=== PATIENT | male | born 1950 | race African-American/Black ===

== ENCOUNTER 2019-11-20 13:49 | Emergency (ER) | payer OTHER ==
[~2019-11-20] VITALS: Ht 182.9 cm; Wt 77.0 kg
[2019-11-20] MEDS ORDERED: SODIUM CHLORIDE 0.9% 1000ML BAG (SEPSIS BOLUS) IV ONE (15:30)
[2019-11-20 16:05] LABS: BASOPHILS % 0.2 % (0.0-2.0); LYMPHOCYTES % 10.7 % (20.0-50.0); MEAN CORPUSCULAR HEMOGLOBIN 34.2 pg (28.0-32.0); MEAN PLATELET VOLUME 9.3 fl (7.4-10.4); NEUTROPHILS % 86.1 % (40.0-76.0); PLATELET 270 x1000/uL (130-400); RED BLOOD CELL COUNT 1.69 mill/uL (4.7-6.1); RED CELL DISTRIBUTION WIDTH 15.1 % (11.6-14.6)
[2019-11-20 16:09] LABS: INR 1.1; PROTHROMBIN TIME 11.4 sec (9.6-11.0)
[2019-11-20 16:10] LABS: CHLORIDE 123 mEq/L (98-107)
[2019-11-20 16:13] LABS: HEMATOCRIT. 17.2 % (42.0-52.0); HEMOGLOBIN. 5.8 g/dL (14.0-18.0)
[2019-11-20 16:16] LABS: ETHANOL BLOOD < 10 mg/dL
[2019-11-20] MEDS ORDERED: ALBUTEROL (0.083%) 2.5MG/3ML NEB HHN SCH (17:00)
[2019-11-20] MEDS ORDERED: CALCIUM GLUCONATE 1,000 MG in DEXT 5% WATER 100 ML IV ONE (17:00)
[2019-11-20] MEDS ORDERED: SODIUM BICARBONATE 8.4% 1 MEQ/ML 50ML SYR IV ONE (17:00)
[2019-11-20] MEDS ORDERED: INSULIN REGULAR (HUMULIN R) 300UNITS/3ML IV ONE (17:00)
[2019-11-20] MEDS ORDERED: DEXTROSE 50% WATER 50ML SYRINGE IV ONE (17:00)
[2019-11-20] MEDS ORDERED: AZITHROMYCIN 500 MG in DEXT 5% WATER 250 ML IV SCH (17:45)
[2019-11-20] MEDS ORDERED: CEFTRIAXONE 1 G PREMIX 50 ML IV ONE (19:00)
[2019-11-20 20:17] VITALS: BP 145/84
== END 2019-11-20 20:39 | disposition short-term general hospital (02) ==
LOC: ER 14:11 → CANBEDREQ 17:40 → ER 20:39
DX: I12.0 Hypertensive chronic kidney disease with stage 5 chronic kidney disease or end stage renal disease (principal); N18.6 End stage renal disease; G93.49 Other encephalopathy; E87.5 Hyperkalemia; D63.1 Anemia in chronic kidney disease; F03.90 Unspecified dementia, unspecified severity, without behavioral disturbance, psychotic disturbance, mood disturbance, and anxiety; Z86.73 Personal history of transient ischemic attack (TIA), and cerebral infarction without residual deficits
CPT/HCPCS: 36415; 71045; 80053; 80320; 83605; 83880; 84145; 84484; 85025; 85610; 86850; 86900; 86901; 87040; 87804; 93005; 96365; 96366; 96368; 96375; 99291; J0456; J0610; J0696; J1815; J3490; J7030; J7060; A4315; G0480